=== PATIENT | female | born 2000 | race Caucasian/White ===

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

== ENCOUNTER 2018-04-09 08:51 | Emergency (ER) | END 2018-04-09 11:13 | disposition home or self-care (01) ==

== ENCOUNTER 2018-07-02 06:42 | Emergency (ER) | END 2018-07-02 09:46 | disposition home or self-care (01) ==

== ENCOUNTER 2018-07-02 10:11 | Outpatient (CLI) | END 2018-07-02 10:40 | disposition home or self-care (01) ==